=== PATIENT | male | born 1970 | race Caucasian/White ===

== ENCOUNTER 2018-10-29 13:21 | Outpatient (CLI) | payer OTHER | END 2018-10-29 13:22 | disposition home or self-care (01) | LOC: SC 13:21 | PROVIDERS: ATTEND Internal Medicine Pulmonary Disease | DX: G47.33 Obstructive sleep apnea (adult) (pediatric) (principal) | CPT/HCPCS: 99203; 99212 ==

== ENCOUNTER 2018-10-29 19:32 | Outpatient (CLI) | payer OTHER | END 2018-10-29 19:33 | disposition home or self-care (01) | LOC: SC 19:32 | PROVIDERS: ATTEND Internal Medicine Pulmonary Disease | DX: G47.33 Obstructive sleep apnea (adult) (pediatric) (principal) | CPT/HCPCS: 95810; 99203; 99212 ==

== ENCOUNTER 2019-01-14 10:11 | Outpatient (CLI) | payer OTHER | END 2019-01-14 10:12 | disposition home or self-care (01) | LOC: SC 10:11 | PROVIDERS: ATTEND Nurse Practitioner Family | DX: G47.33 Obstructive sleep apnea (adult) (pediatric) (principal) | CPT/HCPCS: 99212; 99214 ==

== ENCOUNTER 2019-05-23 10:20 | Outpatient (CLI) | payer OTHER ==
[2019-05-23 10:58] VITALS: BP 96/60
--- NOTE | 2019-05-23 10:58 | SLEEP CARE CONSULTATION ---
Information from patient questionnaire entered by Opal Lucas. I have reviewed and concur with the information entered by Opal Lucas. This document represents the service I personally performed and the decisions made by me, Elodia Stewart, RN, MSN, [employer]. History of Present Illness Previous diagnosis: Very Severe, Obstructive Sleep Apnea-Hypopnea Syndrome AHI: 68 Reason for follow up: first compliance Equipment type: CPAP Equipment obtained from: [employer] Mask style: Nasal (Dreamwear) Mask brand: Respironics Backup mask available: No (He is advised to keep current mask when replaced as a spare) Last cushion change: not since set up CPAP Compliance Data - Data Reviewed with Patient Average duration of nightly device use: 5.6 Compliance rate %: 76.7 Current pressure setting (cmH2O): 4-15 Humidity settin Heated hose settin Average residual AHI: 6.6 Central apnea: 2.6 Obstructive apnea: 1.6 Hypopnea: 2.5 Subjective Missed days of use due to: reports: travel (forgot CPAP, 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 denies: aerophagia, mask discomfort, air blowing in eyes, mask leak noise, condensation in mask/hose, nasal congestion, epistaxis Observed to snore while using device: No Current pressure setting perceived as: comfortable On therapy, patient: reports: sleeping better, awakening more refreshed, being more awake and alert during the day, more rested overall (with a lot more energy). denies: drowsiness while driving Initial [place] Sleepiness Scale score: 10 Current [place] Sleepiness Scale score: 7 Allergies and Home Medications Known drug allergies: Yes (penicillin ) Home medication list reviewed: No (no medications ) Review of Systems Review of systems same as previous: Yes Physical Exam Blood Pressure: 96/60 Cuff size: long Heart Rate: 69 O2 Saturation: 99 Height: 6 ft Weight: 196 lb 9.6 oz Body Mass Index: 26.6 BMI Classification: Overweight Impression and Plan 1. Obstructive Sleep Apnea-Hypopnea Syndrome, very severe, with good treatment compliance and slightly elevated residual AHI. On CPAP therapy, the patient has better sleep quality and is more rested overall with more energy. To reduce the residual AHI, I will change his autoCPAP pressure to [id number]. He is to call me if pressure uncomfortable. Since it is unknown if his apnea is less on his side, if unable to use CPAP, he is to raise head of bed 30-40 degrees to reduce apnea risk. Since the weather is starting to get cooler, I discussed rationale for changing his humidity and heated hose settings such as oral dryness or condensation. He is advised to change his filters monthly with rationale discussed. He is also advised to change his mask cushion regularly to maintain his mask seal and comfort. He was also advised how his weight gain can increase his apnea risk, CPAP pressure and over all health risks. He is advised to lose weight. Patient's apnea severity and rationale for treatment to reduce apnea, improve sleep quality and reduce cardiovascular and cerebrovascular events was reviewed. I * * Change CPAP pressure to 8-12 cmH2O * Elevate head of bed if unable to use CPAP * Notify me if snoring with mask or feeling that the pressure is too much or too little * Attempt to lose weight * Return for follow up in 2 months , or sooner if concerns arise I spent 100% of this 25 minute visit face to face with the patient with greater than 50% of this was spent time counseling the patient and coordination of care.
== END 2019-05-23 10:21 | disposition home or self-care (01) ==
LOC: SC 10:20
PROVIDERS: ATTEND Nurse Practitioner Family
DX: G47.33 Obstructive sleep apnea (adult) (pediatric) (principal)
CPT/HCPCS: 99212; 99214